=== PATIENT | male | born 1955 | race Hispanic/Latino ===

== ENCOUNTER 2024-05-31 07:57 | Inpatient (IN) | payer MEDICARE, OTHER ==
[2024-05-28 10:03] LABS: BASOPHILS % 0.4 % (0.0-1.0); EOSINOPHILS # (AUTO) 0.2 (0.0-0.4); EOSINOPHILS % 2.2 % (0.0-6.0); HEMATOCRIT 45.7 % (38.2-49.6); HEMOGLOBIN 15.5 g/dL (14.0-18.0); LYMPHOCYTES # (AUTO) 2.2 (1.0-3.2); LYMPHOCYTES % 32.9 % (18.0-39.1); MEAN CORPUSCULAR HEMOGLOBIN 29.9 pg (28-32); MEAN CORPUSCULAR HGB CONC 33.9 g/dL (31-35); MEAN CORPUSCULAR VOLUME 88.1 fL (81-99); MONOCYTES # (AUTO) 0.7 (0.2-0.8); MONOCYTES % 9.9 % (4.4-11.3); NEUTROPHILS # (AUTO) 3.7 (2.1-6.9); NEUTROPHILS % 54.5 % (38.7-80.0); PLATELET COUNT 193 x10e3/uL (140-360); RED BLOOD COUNT 5.19 x10e6/uL (4.3-5.7); RED CELL DISTRIBUTION WIDTH 13.3 % (11.7-14.4); WHITE BLOOD COUNT 6.74 x10e3/uL (4.8-10.8)
[2024-05-28 10:31] LABS: ANION GAP 15.9 mmol/L (8-16); CALCIUM 9.6 mg/dL (8.4-10.2); CREATININE, SERUM 0.96 mg/dL (0.72-1.25); POTASSIUM 3.9 mmol/L (3.5-5.1)
[~2024-05-31] VITALS: Ht 177.8 cm; Wt 115.7 kg
[~2024-05-31 07:57] MED LIST: ASPIR 8181 MG PO; ATENOLOL25 MG PO; ATORVASTATIN CA10 MG PO; BUPIVACAINE 0.25% 30ML SDV ONE; FISH OIL PO; GARLIC1000 MG PO; GLIPIZIDE5 MG PO; GLYBURIDE5 MG PO; HYDROCHLOROTH12.5 MG PO; HYZAAR 100-251 EACH PO; INDOMETHACIN PO; JARDIANCE10 MG PO; LIVALO2 MG PO; MAGNESIUM PO; METFORMIN HCL500 MG PO; MOUNJARO7.5 MG/0.5 SQ; MULTI-VITAMIN1 EACH PO; OMEGA 3 1,0001 EACH PO; TUMERIC PO; VITAMIN B12 PO; VITAMIN B121000 MCG PO
[2024-05-31] MEDS: LACTATED RINGER'S 1,000 ML ONE (08:22)
[2024-05-31] MEDS ORDERED: HYDROCODONE/APAP 7.5MG-325MG 1 EA TAB PO PRN (08:30)
[2024-05-31] MEDS: SCOPOLAMINE 1 MG PATCH TOP SCH (08:30)
[2024-05-31] MEDS: SCOPOLAMINE 1 MG PATCH ONE (11:23)
[2024-05-31] MEDS: FENTANYL CITRATE/PF 100MCG/2 ML INJ ONE (11:41)
[2024-05-31 12:25] VITALS: PULSE 84; RESP 18; O2SAT 94
[2024-05-31] MEDS: ONDANSETRON HCL INJ 2MG/ML 2ML 2 MG/ML VIAL IV PRN (12:27)
[2024-05-31] MEDS: Morphine 2mg Syringe 2 MG/ML SYR IV PRN (12:27)
[2024-05-31] MEDS: SODIUM CHLORIDE 0.9% 1000ML 1,000 ML IV SCH (12:28)
[2024-05-31] MEDS ORDERED: PROPOFOL IV EMULSION 10 MG/ML 20 ML VIAL ONE (12:44)
[2024-05-31] MEDS ORDERED: SUGAMMADEX SODIUM 200 MG/2 ML VIAL IV ONE (12:44)
[2024-05-31] MEDS ORDERED: ROCURONIUM BROMIDE 10 MG/ML 5ML VIAL IV ONE (12:44)
[2024-05-31] MEDS ORDERED: ACETAMINOPHEN 1000 MG/100 ML IV ONE (12:44)
[2024-05-31] MEDS ORDERED: LIDOCAINE HCL 2% LOCAL INJ 5 ML SDV VIAL INJ ONE (12:44)
[2024-05-31] MEDS ORDERED: ONDANSETRON HCL INJ 2MG/ML 2ML 2 MG/ML VIAL ONE (12:44)
[2024-05-31] MEDS ORDERED: EPHEDRINE SULFATE INJ 50 MG/ML VIAL ONE (12:44)
[2024-05-31] MEDS ORDERED: SUCCINYLCHOLINE CHLORIDE 20 MG/ML 10ML VIAL ONE (12:44)
[2024-05-31] MEDS ORDERED: SEVOFLURANE INHAL SOLN 250 ML PEN BTL ONE (12:44)
[2024-05-31] MEDS ORDERED: EPINEPHRINE HCL 1:1000 1ML 1 MG/ML AMP ONE (13:42)
[2024-05-31] MEDS ORDERED: BUPIVACAINE 0.25% 30ML SDV ONE (13:42)
[2024-05-31 16:27] VITALS: BP 171/78; PULSE 73; RESP 20; TEMP 97.9; O2SAT 97
[2024-05-31] MEDS: HYDROMORPHONE 1MG/1ML INJ IV PRN (17:18)
[2024-05-31] MEDS ORDERED: FENTANYL CITRATE/PF 100MCG/2 ML INJ ONE (17:46)
[2024-05-31 18:44] VITALS: PULSE 70; RESP 18; O2SAT 97
[2024-05-31 20:00] VITALS: BP 182/88; PULSE 75; RESP 20; TEMP 97.9; O2SAT 98
[2024-05-31] MEDS: ENOXAPARIN SOD INJ 40 MG/0.4 ML SYR SC SCH (21:23)
[2024-06-01] VITALS: BP 184/72; PULSE 81; RESP 20; TEMP 97.6; O2SAT 97
[2024-06-01 04:00] VITALS: BP 179/83; PULSE 80; RESP 20; TEMP 98.6; O2SAT 96
[2024-06-01 05:27] LABS: BASOPHILS % 0.1 % (0.0-1.0); HEMATOCRIT 47.3 % (38.2-49.6); HEMOGLOBIN 15.3 g/dL (14.0-18.0); LYMPHOCYTES # (AUTO) 0.9 (1.0-3.2); LYMPHOCYTES % 8.8 % (18.0-39.1); MEAN CORPUSCULAR HEMOGLOBIN 29.5 pg (28-32); MEAN CORPUSCULAR HGB CONC 32.3 g/dL (31-35); MEAN CORPUSCULAR VOLUME 91.1 fL (81-99); MONOCYTES # (AUTO) 0.6 (0.2-0.8); MONOCYTES % 5.2 % (4.4-11.3); NEUTROPHILS # (AUTO) 9.1 (2.1-6.9); NEUTROPHILS % 85.6 % (38.7-80.0); PLATELET COUNT 199 x10e3/uL (140-360); RED BLOOD COUNT 5.19 x10e6/uL (4.3-5.7); RED CELL DISTRIBUTION WIDTH 13.4 % (11.7-14.4); WHITE BLOOD COUNT 10.57 x10e3/uL (4.8-10.8)
[2024-06-01 06:03] LABS: ALBUMIN 3.9 g/dL (3.5-5.0); ALBUMIN/GLOBULIN RATIO 1.1 (0.8-2.0); ANION GAP 24.8 mmol/L (8-16); BILIRUBIN,TOTAL 0.7 mg/dL (0.2-1.2); CREATININE, SERUM 1.11 mg/dL (0.72-1.25); MAGNESIUM 1.9 MG/DL (1.3-2.1); PHOSPHORUS 4.3 MG/DL (2.3-4.7); POTASSIUM 3.8 mmol/L (3.5-5.1); TOTAL PROTEIN 7.5 g/dL (6.5-8.1)
[2024-06-01] MEDS ORDERED: FAMOTIDINE 20 MG/2 ML VIAL IV ONE (07:30)
[2024-06-01 07:51] VITALS: PULSE 80; RESP 18; O2SAT 96
[2024-06-01 08:13] VITALS: BP 167/70; PULSE 79; RESP 20; TEMP 98.6; O2SAT 97
[2024-06-01 08:25] VITALS: BP 167/70; PULSE 79; RESP 20; TEMP 98.6; O2SAT 97
[2024-06-01] MEDS ORDERED: HYDROCHLOROTHIAZIDE 25 MG TAB PO SCH (09:00)
[2024-06-01] MEDS ORDERED: ULTRAM 50MG50 MG PO (10:09)
[2024-06-01] MEDS ORDERED: ONDANSETRON ODT8 MG PO (10:10)
== END 2024-06-01 10:40 | disposition home or self-care (01) | DRG 621 ==
LOC: OR 07:57 → PACU V 08:23 → MED/SURG2 12:16
PROVIDERS: ADMIT Internal Medicine; ATTEND Internal Medicine
PROC: 0FB24ZX Excision of Left Lobe Liver, Percutaneous Endoscopic Approach, Diagnostic (ICD-10-PCS; 2024-05-31)
PROC: 0DB64Z3 Excision of Stomach, Percutaneous Endoscopic Approach, Vertical (ICD-10-PCS; principal; 2024-05-31 09:44)
DX: E66.01 Morbid (severe) obesity due to excess calories (principal); K74.60 Unspecified cirrhosis of liver; K76.0 Fatty (change of) liver, not elsewhere classified; E11.9 Type 2 diabetes mellitus without complications; I10 Essential (primary) hypertension; Z68.37 Body mass index [BMI] 37.0-37.9, adult; G47.33 Obstructive sleep apnea (adult) (pediatric); Z79.84 Long term (current) use of oral hypoglycemic drugs; Z90.49 Acquired absence of other specified parts of digestive tract
CPT/HCPCS: 36415; 71046; 80048; 80053; 82948; 83735; 84100; 85025; 88307; 88313; 93005; 94799; J0171; J0330; J0690; J1170; J1650; J2001; J2270; J2405; J7030